=== PATIENT | female | born 1975 | race Caucasian/White ===

== ENCOUNTER → 2019-07-12 | Outpatient (REF) | payer MEDICARE ==
[2019-07-12 15:46] LABS: BASO # 0.1 10^3/uL (0.0-0.2); BASO % 1.3 % (0.0-1.0); EOS # 0.2 10^3/uL (0.0-0.5); EOS % 1.7 % (0.0-3.0); HEMATOCRIT 43.4 % (36.0-47.0); HEMOGLOBIN 13.5 g/dl (12.0-15.5); LYMPH # 1.9 10^3/uL (1.5-5.0); LYMPH % 20.6 % (24.0-44.0); MEAN CORPUSCULAR HEMOGLOBIN 28.1 pg (27.0-33.0); MEAN CORPUSCULAR HGB CONC 31.1 g/dl (32.0-36.5); MEAN CORPUSCULAR VOLUME 90.4 fl (80.0-96.0); MONO # 0.6 10^3/uL (0.0-0.8); MONO % 5.8 % (0.0-5.0); NEUTROPHILS # 6.6 10^3/uL (1.5-8.5); NEUTROPHILS % 70.2 % (36.0-66.0); PLATELET COUNT, AUTOMATED 190 10^3/uL (150-450); WHITE BLOOD COUNT 9.4 10^3/uL (4.0-10.0)
[2019-07-12 15:53] LABS: ALBUMIN 3.6 GM/DL (3.2-5.2); ALT/SGPT 12 U/L (12-78); BILIRUBIN,TOTAL 0.3 MG/DL (0.2-1.0); BLOOD UREA NITROGEN 10 MG/DL (7-18); CALCIUM LEVEL 8.8 MG/DL (8.5-10.1); CARBON DIOXIDE LEVEL 26 MEQ/L (21-32); CHLORIDE LEVEL 111 MEQ/L (98-107); CHOLESTEROL LEVEL 132 MG/DL (<200); CHOLESTEROL RISK RATIO 2.588 (<5); CREATININE FOR GFR 0.84 MG/DL (0.55-1.30); FREE T4 0.92 NG/DL (0.76-1.46); GLOMERULAR FILTRATION RATE > 60.0 (>58); GLUCOSE, FASTING 82 MG/DL (70-100); HDL CHOLESTEROL 51 MG/DL (>40); LDL CHOLESTEROL 64 MG/DL (<100); NON-HDL-C 81 MG/DL; SODIUM LEVEL 143 MEQ/L (136-145); TOTAL PROTEIN 6.9 GM/DL (6.4-8.2); TRIGLYCERIDES LEVEL 83 MG/DL (<150)
[2019-07-12 16:08] LABS: HEMOGLOBIN A1c 4.9 %
== END ==
LOC: M SFHCPLAZ 13:26
PROVIDERS: ATTEND Physician Assistant Medical
DX: R56.9 Unspecified convulsions (principal); E66.09 Other obesity due to excess calories; Z12.11 Encounter for screening for malignant neoplasm of colon; Z13.220 Encounter for screening for lipoid disorders

== ENCOUNTER 2019-07-20 11:22 | Emergency (ER) | payer MEDICARE ==
[~2019-07-20] VITALS: Ht 152.4 cm; Wt 83.2 kg
[2019-07-20] MEDS ORDERED: TOPI100T9 (11:29)
[2019-07-20] MEDS ORDERED: FAMOTIDINE INJ 20MG/2ML VIAL (S0028) IVP ONE (12:00)
[2019-07-20] MEDS ORDERED: diphenhydrAMINE INJ 50MG/ML VIAL (J1200) IV ONE (12:00)
[2019-07-20] MEDS ORDERED: methylPREDNISolone INJ 125 MG/2 ML VIAL (J2930) IV ONE (12:00)
[2019-07-20] MEDS ORDERED: PRED20TA PO (12:22)
[2019-07-20] MEDS ORDERED: BENA25TA5 PO (12:23)
[2019-07-20] MEDS ORDERED: PEPC1TAB5 PO (12:23)
[2019-07-20 12:50] VITALS: BP 128/63
== END 2019-07-20 13:01 | disposition home or self-care (01) ==
LOC: M ED 11:22
DX: T63.441A Toxic effect of venom of bees, accidental (unintentional), initial encounter (principal); Y92.9 Unspecified place or not applicable; Y93.9 Activity, unspecified; R56.9 Unspecified convulsions; F17.200 Nicotine dependence, unspecified, uncomplicated; Z79.899 Other long term (current) drug therapy
CPT/HCPCS: 96374; 96375; 99284; J1200; J2930

== ENCOUNTER 2019-11-12 21:05 | Emergency (ER) | payer MEDICARE ==
[~2019-11-12] VITALS: Ht 154.9 cm; Wt 81.8 kg
[~2019-11-12 21:05] MED LIST: BENA25TA5 PO; PEPC1TAB5 PO; PRED20TA PO; TOPI100T9
[2019-11-12 22:00] LABS: HEMATOCRIT 41.9 % (36.0-47.0); HEMOGLOBIN 13.8 g/dl (12.0-15.5); MEAN CORPUSCULAR HEMOGLOBIN 29.2 pg (27.0-33.0); MEAN CORPUSCULAR HGB CONC 32.9 g/dl (32.0-36.5); MEAN CORPUSCULAR VOLUME 88.6 fl (80.0-96.0); PLATELET COUNT, AUTOMATED 223 10^3/uL (150-450); RED BLOOD COUNT 4.73 10^6/uL (4.00-5.40); WHITE BLOOD COUNT 13.1 10^3/uL (4.0-10.0)
[2019-11-12 22:31] LABS: AMPHETAMINES LEVEL URINE NEGATIVE (NEGATIVE); BARBITURATES URINE NEGATIVE (NEGATIVE); BENZODIAZEPINES URINE NEGATIVE (NEGATIVE); CANNABINOIDS URINE POSITIVE (NEGATIVE); COCAINE METABOLITE URINE NEGATIVE (NEGATIVE); METHADONE URINE NEGATIVE (NEGATIVE); OPIATES URINE NEGATIVE (NEGATIVE); PHENCYCLIDINE URINE NEGATIVE (NEGATIVE)
[2019-11-12 22:39] LABS: ACETAMINOPHEN LEVEL < 2.0 UG/ML (10.0-30.0); ALBUMIN 3.6 GM/DL (3.2-5.2); ALT/SGPT 16 U/L (12-78); BILIRUBIN,DIRECT < 0.1 MG/DL (0.0-0.2); BILIRUBIN,TOTAL 0.2 MG/DL (0.2-1.0); BLOOD UREA NITROGEN 4 MG/DL (7-18); CALCIUM LEVEL 8.2 MG/DL (8.5-10.1); CARBON DIOXIDE LEVEL 22 MEQ/L (21-32); CHLORIDE LEVEL 112 MEQ/L (98-107); CREATININE FOR GFR 0.77 MG/DL (0.55-1.30); ETHYL ALCOHOL (ETHANOL) 0.044 % (0.000-0.010); GLOMERULAR FILTRATION RATE > 60.0 (>58); GLUCOSE, FASTING 73 MG/DL (70-100); POTASSIUM SERUM 4.4 MEQ/L (3.5-5.1); SALICYLATE LEVEL 4.7 MG/DL (5.0-30.0); SODIUM LEVEL 143 MEQ/L (136-145)
[2019-11-12 23:10] VITALS: BP 160/88
== END 2019-11-12 23:21 | disposition home or self-care (01) ==
LOC: M ED 21:05
DX: F10.929 Alcohol use, unspecified with intoxication, unspecified (principal); Z60.9 Problem related to social environment, unspecified; R56.9 Unspecified convulsions; K21.9 Gastro-esophageal reflux disease without esophagitis; F41.9 Anxiety disorder, unspecified; Z79.899 Other long term (current) drug therapy
CPT/HCPCS: 36415; 80048; 80076; 80307; 84443; 85027; 99284; G0480

== ENCOUNTER 2021-04-09 14:29 | Emergency (ER) | payer MEDICARE ==
[~2021-04-09] VITALS: Ht 154.9 cm; Wt 72.5 kg
[2021-04-09] MEDS ORDERED: CLOTRIMAZOLE 1% TOPICAL CREAM 30GM TOP STA (15:49)
[2021-04-09] MEDS ORDERED: ANTI1CRE6 TOP (15:52)
[2021-04-09] MEDS ORDERED: diphenhydrAMINE 25MG CAP PO ONE (15:55)
[2021-04-09 16:10] VITALS: BP 153/79
== END 2021-04-09 16:54 | disposition home or self-care (01) ==
LOC: M ED 14:29
DX: B36.0 Pityriasis versicolor (principal); R56.9 Unspecified convulsions; F17.200 Nicotine dependence, unspecified, uncomplicated; Z79.899 Other long term (current) drug therapy

== ENCOUNTER 2021-05-22 13:11 | Emergency (ER) | payer MEDICARE ==
[~2021-05-22] VITALS: Ht 154.9 cm; Wt 68.2 kg
[~2021-05-22 13:11] MED LIST changes: +ANTI1CRE6 TOP
[2021-05-22] MEDS ORDERED: PERM5CRE9 TOP (17:22)
[2021-05-22] MEDS ORDERED: IVER1TAB PO (17:22)
[2021-05-22 17:40] VITALS: BP 131/67
== END 2021-05-22 17:40 | disposition home or self-care (01) ==
LOC: M ED 13:11
DX: B86 Scabies (principal); R56.9 Unspecified convulsions; F17.200 Nicotine dependence, unspecified, uncomplicated

== ENCOUNTER 2021-05-27 12:36 | Emergency (ER) | payer MEDICARE ==
[~2021-05-27] VITALS: Ht 152.4 cm; Wt 67.5 kg
[~2021-05-27 12:36] MED LIST changes: +IVER1TAB PO; +PERM5CRE9 TOP
[2021-05-27 12:37] VITALS: BP 131/81
== END 2021-05-27 15:09 | disposition home or self-care (01) ==
LOC: M ED 12:36
DX: B86 Scabies (principal); Z60.8 Other problems related to social environment; F17.210 Nicotine dependence, cigarettes, uncomplicated

== ENCOUNTER 2021-07-04 12:42 | Emergency (ER) | payer MEDICARE ==
[~2021-07-04] VITALS: Ht 154.9 cm; Wt 62.2 kg
[2021-07-04] MEDS ORDERED: HYDROCORTISONE 1% CREAM 30 GM TOP ONE (15:35)
[2021-07-04 15:59] LABS: BASO # 0.2 10^3/uL (0.0-0.2); BASO % 1.4 % (0.0-1.0); EOS # 0.1 10^3/uL (0.0-0.5); EOS % 0.8 % (0.0-3.0); HEMATOCRIT 41.5 % (36.0-47.0); HEMOGLOBIN 13.3 g/dl (12.0-15.5); LYMPH # 1.9 10^3/uL (1.5-5.0); LYMPH % 17.9 % (24.0-44.0); MEAN CORPUSCULAR HEMOGLOBIN 29.1 pg (27.0-33.0); MEAN CORPUSCULAR VOLUME 90.8 fl (80.0-96.0); MONO # 0.5 10^3/uL (0.0-0.8); MONO % 4.5 % (2.0-8.0); NEUTROPHILS % 74.9 % (36.0-66.0); PLATELET COUNT, AUTOMATED 208 10^3/uL (150-450); RED BLOOD COUNT 4.57 10^6/uL (4.00-5.40); WHITE BLOOD COUNT 10.6 10^3/uL (4.0-10.0)
[2021-07-04 16:18] LABS: ERYTHROCYTE SEDIMENTATION RATE 3 mm/hr (0-20)
[2021-07-04] MEDS ORDERED: PRED20TA PO ×2 (17:11→17:34)
[2021-07-04 17:22] VITALS: BP 122/77
== END 2021-07-04 18:09 | disposition home or self-care (01) ==
LOC: M ED 12:42
DX: L29.9 Pruritus, unspecified (principal); R56.9 Unspecified convulsions

== ENCOUNTER → 2021-08-12 | Outpatient (REF) ==
[2021-08-12 11:30] LABS: RSV AMPLIFICATION NEGATIVE (NEGATIVE)
== END ==
LOC: M LAB 09:36
DX: Z20.822 Contact with and (suspected) exposure to COVID-19 (principal)